=== PATIENT | female | born 1950 | race Caucasian/White ===

== ENCOUNTER → 2022-04-25 | Outpatient (CLI) | payer MEDICARE, MEDICAID, SELFPAY ==
--- NOTE | 2022-04-25 12:39 | CT_ITS ---
EXAM: CT CHEST WITHOUT INTRAVENOUS CONTRAST CLINICAL INDICATION: INTERCOSTAL PAIN TECHNIQUE: Helically acquired images were obtained of the chest without intravenous contrast. This CT exam was performed using one or more of the following dose reduction techniques: automated exposure control, adjustment of the mA and/or kV according to patient size, and/or use of iterative reconstruction technique. This report was created using [employer] report generation technology. COMPARISON: None. FINDINGS: LUNGS AND PLEURAL SPACES: Unremarkable. No mass. No consolidation or edema. No pleural effusion or thickening. No pneumothorax. HEART: Unremarkable. Heart size is normal. No pericardial effusion. No significant coronary artery calcifications. MEDIASTINUM: Unremarkable. No mediastinal or hilar adenopathy. Esophagus is unremarkable. No hiatal hernia. THYROID: Unremarkable. No thyroid lesions. BONES/JOINTS: Unremarkable. No suspicious lytic or blastic abnormality. VASCULATURE: Unremarkable. Thoracic aorta is non-dilated. CT/Chest without Contrast IMPRESSION: Negative CT chest without intravenous contrast. Electronically Signed: Wesly Odell MD at 23:32 EDT ,
--- NOTE | 2022-04-25 14:00 | MRI_ITS ---
STUDY: MRI RIGHT SHOULDER REASON FOR EXAM: Female, 72 years old. PAIN IN RIGHT SHOULDER; TECHNIQUE: Standardized fat and water weighted pulse sequences were obtained in all 3 orthogonal planes. COMPARISON: None. FINDINGS: There is partial humeral surface tear of the distal supraspinatus tendon, series 7 image 12/03. Normal infraspinatus tendon. Normal subscapularis tendon. Normal teres minor tendon. Normal supraspinatus muscle. Normal infraspinatus muscle. Normal subscapularis muscle. Normal teres minor muscle. 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 There is small joint effusion. There are cysts of the lateral humeral head. Normal biceps labral complex. Normal intracapsular long biceps tendon. Normal labrum. Normal capsulo- ligamentous complex. Normal rotator interval. There is moderate osteoarthritis of the acromioclavicular articulations. There is a Type IV morphology (inferior convex) acromion, with a neutral orientation. There is no subacromial-subdeltoid bursal fluid. Normal visualized coracohumeral and coracoacromial ligaments. Normal quadrilateral space. Normal axillary space. Normal deltoid muscle. Normal trapezius muscle. MRI/Upper Ext Joint Only(Routine) IMPRESSION: Partial tear of the supraspinatus tendon. No full-thickness rotator cuff tear. Glenohumeral and acromioclavicular arthrosis. Electronically Signed: Antonio Champion MD at 15:04 EDT ,
== END | disposition home or self-care (01) ==
PROVIDERS: PCP Family Medicine; Referring Provider Student in an Organized Health Care Education/Training Program; Visit Provider Student in an Organized Health Care Education/Training Program
DX: R07.82 Intercostal pain (principal); M25.511 Pain in right shoulder
CPT/HCPCS: 71250; 73221